=== PATIENT | male | born 1985 | race Caucasian/White ===

== ENCOUNTER → 2017-02-15 | Outpatient (CLI) | payer OTHER ==
[2015-07-09 23:15] VITALS: BP 127/75
[~2017-02-15] MED LIST: BUPIVACAINE MPF 0.5% 30 ML VIAL. ONE; LIDOCAINE 1% PF 30 ML VIAL. ONE
== END | disposition home or self-care (01) ==
LOC: SURG 12:59
PROVIDERS: ATTEND Anesthesiology Pain Medicine
DX: M47.816 Spondylosis without myelopathy or radiculopathy, lumbar region (principal); Z72.0 Tobacco use; Z72.89 Other problems related to lifestyle
CPT/HCPCS: 64493; 64494; 64495; J2001; J3490

== ENCOUNTER → 2017-02-22 | Outpatient (CLI) | payer OTHER ==
[2015-07-09 23:15] VITALS: BP 127/75
[~2017-02-22] MED LIST changes: +BUPIVACAINE MPF 0.25% 10 ML VIAL. ONE; -BUPIVACAINE MPF 0.5% 30 ML VIAL. ONE
== END | disposition home or self-care (01) ==
LOC: SURG 15:19
PROVIDERS: ATTEND Anesthesiology Pain Medicine
DX: M47.816 Spondylosis without myelopathy or radiculopathy, lumbar region (principal)
CPT/HCPCS: 64493; 64494; 64495; J2001; J3490

== ENCOUNTER → 2017-03-29 | Outpatient (CLI) | payer OTHER ==
[2015-07-09 23:15] VITALS: BP 127/75
[~2017-03-29] MED LIST changes: +IV RINGERS SOLUTION,LACTATED 1,000 ML IV ONE; +LIDOCAINE (700MG/PATCH) PATCH. ONE; +MIDAZOLAM HCL PF 2 MG/2 ML VIAL. ONE; +methylPREDNISolone ACETATE 40 MG/ML VIAL. ONE
== END ==
LOC: SURG 07:54
PROVIDERS: ATTEND Anesthesiology Pain Medicine
DX: M47.816 Spondylosis without myelopathy or radiculopathy, lumbar region (principal); I10 Essential (primary) hypertension; F41.8 Other specified anxiety disorders; Z72.0 Tobacco use; Z72.89 Other problems related to lifestyle; Z79.899 Other long term (current) drug therapy
CPT/HCPCS: 64635; 64636; J1030; J2001; J2250; J3010; J3490; J7120; 99152

== ENCOUNTER → 2017-05-17 | Outpatient (CLI) | payer OTHER ==
[2015-07-09 23:15] VITALS: BP 127/75
== END | disposition home or self-care (01) ==
LOC: SURG 10:24
PROVIDERS: ATTEND Anesthesiology Pain Medicine
DX: M47.816 Spondylosis without myelopathy or radiculopathy, lumbar region (principal)
CPT/HCPCS: 99214

== ENCOUNTER → 2017-06-14 | Outpatient (CLI) | payer OTHER ==
[2015-07-09 23:15] VITALS: BP 127/75
== END | disposition home or self-care (01) ==
LOC: SURG 13:01
PROVIDERS: ATTEND Anesthesiology Pain Medicine
DX: M25.551 Pain in right hip (principal)
CPT/HCPCS: 99214

== ENCOUNTER 2017-10-20 22:52 | Emergency (ER) | payer OTHER ==
[~2017-10-20] VITALS: Ht 180.3 cm; Wt 87.5 kg
--- NOTE | 2017-10-20 23:23 | PHYS DOC ---
Past History Past Medical History: Sciatica, Other Past Surgical History: No Surgical History Alcohol Use: Rarely Drug Use: None Adult General Chief Complaint Chief Complaint: FOOT INJURY PAIN HPI HPI 32-year-old male presents with left foot and heel pain. The patient states that yesterday began to have pain that started his left heel. He was aching throughout the evening. When the patient woke up this morning and stepped out of bed, the pain was significant and he fell over. It has continued to be sore and painful throughout the day and alternating Tylenol and ibuprofen. His last dose 6 hours ago and he took 400 mg ibuprofen. Patient has had previous issues with his feet when he was in the [employer] with collapsed arches and arthritic toes. Patient denies any recent trauma or inciting event. 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 He denies fever or chills. Review of Systems Review of Systems Constitutional: Denies fever or chills [] Eyes: Denies change in visual acuity, redness, or eye pain [] HENT: Denies nasal congestion or sore throat [] Respiratory: Denies cough or shortness of breath [] Cardiovascular: No additional information not addressed in HPI [] GI: Denies abdominal pain, nausea, vomiting, bloody stools or diarrhea [] : Denies dysuria or hematuria [] Musculoskeletal: Left foot pain[] Integument: Denies rash or skin lesions [] Neurologic: Denies headache, focal weakness or sensory changes [] Endocrine: Denies polyuria or polydipsia [] All other systems were reviewed and found to be within normal limits, except as documented in this note. Allergies Allergies Allergies Coded Allergies Type Severity Reaction Last Updated Verified No Known Drug Allergies 07/09/15 No Physical Exam Physical Exam Constitutional: Well developed, well nourished, no acute distress, non-toxic appearance. [] HENT: Normocephalic, atraumatic, bilateral external ears normal, oropharynx moist, no oral exudates, nose normal. [] Eyes: PERRLA, EOMI, conjunctiva normal, no discharge. [] Neck: Normal range of motion, no tenderness, supple, no stridor. [] Cardiovascular:Heart rate regular rhythm, no murmur [] Lungs & Thorax: Bilateral breath sounds clear to auscultation [] Abdomen: Bowel sounds normal, soft, no tenderness, no masses, no pulsatile masses. [] Skin: Warm, dry, no erythema, no rash. [] Back: No tenderness, no CVA tenderness. [] Extremities: Tenderness on the plantar aspect of the foot around the heel. No obvious sign of infection or foreign body. No swelling.[] Neurologic: Alert and oriented X 3, normal motor function, normal sensory function, no focal deficits noted. [] Psychologic: Affect normal, judgement normal, mood normal. [] EKG EKG [] Radiology/Procedures Radiology/Procedures [] Impressions: My preliminary read: No fractures seen. No bone spurs are seen. Course & Med Decision Making Course & Med Decision Making Pertinent Labs and Imaging studies reviewed. (See chart for details) The patient's foot x-rays negative. I do not see a bone spur. It is possible that his son running around yesterday this caused some plantar fascia contraction. We described the pain this morning, didn't sound consistent with plantar fasciitis. He denies having history of this. Either way, it appears to be soft tissue and should improve on its own. I will discharge him with plantar fasciitis exercises. [] Dragon Disclaimer Dragon Disclaimer This electronic medical record was generated, in whole or in part, using a voice recognition dictation system. Departure Departure: Referrals: TIN MILLER DO, [facility] (PCP) DEMARCUS AMEZCUA DO Oct 20, 2017 23:23
[2017-10-21 00:25] VITALS: BP 110/69
--- NOTE | 2017-10-21 03:41 | RAD ---
EXAM: FOOT LEFT 2V. HISTORY: Pain at heel. Assess for foreign body. COMPARISON: None. FINDINGS: There is no radiopaque foreign body. No fractures are identified. Joint spaces and alignment are maintained. IMPRESSION: 1. No radiopaque foreign body. Sonography could further evaluate for foreign body if there is persistent concern. Electronically signed by: Marty Moraes MD (10/21/2017 3:37 AM) [facility]
== END 2017-10-21 00:37 | disposition home or self-care (01) ==
LOC: ER 22:52
DX: M72.2 Plantar fascial fibromatosis (principal)
CPT/HCPCS: 73620; 99284